=== PATIENT | female | born 1990 | race Caucasian/White ===

== ENCOUNTER 2018-10-13 07:41 | Outpatient (CLI) | payer BC ==
--- NOTE | 2018-10-13 08:39 | ULT ---
LEFT BREAST ULTRASOUND: Date: 10/13/18 COMPARISON: None. HISTORY: Palpable mass in the 2 o'clock position of left breast that changes daily. TECHNIQUE: Multiplanar Mccallum scale and color Doppler images were obtained in a targeted ultrasound of the left br east. FINDINGS: In the 2 o'clock position of the left breast, approximately 5 cm from the nipple, normal appearing br east parenchyma is seen. No solid mass is seen. No suspicious shadowing is present. IMPRESSION: BI-RADS Category 1 - Negative. Annual screening mammography is recommended at the age of 40. POS: [facility]
== END 2018-10-13 07:42 | disposition home or self-care (01) ==
LOC: BICULT 07:41
PROVIDERS: ATTEND Physician Assistant
DX: N63.21 Unspecified lump in the left breast, upper outer quadrant (principal)